=== PATIENT | female | born 1985 ===

== ENCOUNTER 2018-12-08 13:16 | Outpatient (REF) | payer BC, SELFPAY ==
[2018-12-08 19:00] LABS: HCT 42.7 % (36.0-46.0); HGB 14.1 g/dL (12.0-15.5); Mean Corpuscular Hemoglobin 28.4 pg (27.0-33.0); Mean Corpuscular Volume 86.1 fL (80-95); Mean Platelet Volume 10.1 fL (8.0-11.0); Platelet Count 288 x1000/uL (130-400); RBC 4.96 m/cumm (4.00-5.20); RBC Distribution Width 12.3 % (11.7-14.6); White Blood Cell Count 5.29 k/cumm (4.4-10.8)
[2018-12-08 19:14] LABS: Mono Screening Negative (Negative)
== END 2018-12-08 13:36 ==
LOC: NCHCN 13:16
PROVIDERS: PCP Nurse Practitioner Family; Visit Provider Nurse Practitioner Family
DX: J02.9 Acute pharyngitis, unspecified (principal)
CPT/HCPCS: 85027; 86308